=== PATIENT | male | born 1960 | race Caucasian/White ===

== ENCOUNTER → 2021-07-18 | Day surgery (SDC) | payer OTHER ==
[~2021-07-18] VITALS: Ht 188 cm; Wt 132.4 kg
[~2021-07-18] MED LIST: AMARYL2 MG PO; JARDIANCE25 MG PO; LIPITOR20 MG PO; METFORMIN HCL500 MG PO; PRINIVIL10 MG PO; TRULICITY3 MG/0.5 M IJ
[2021-07-18 08:01] LABS: HCT 48.6 % (42.0-52.0); HGB 16.6 g/dl (13.2-18.0); MCH 29.4 pg (25.0-31.0); MCHC 34.2 g/dL (32.0-36.0); MCV 86.2 fL (78.0-100.0); MPV 9.4 fL (6.0-9.5); RBC 5.64 M/uL (4.70-6.00); RDW 12.1 % (11.5-14.0); WBC 8.7 K/uL (4.0-10.5)
[2021-07-18 08:17] LABS: ALBUMIN 3.8 g/dL (3.4-5.0); BILIRUBIN - TOTAL 0.6 mg/dL (0.2-1.0); BUN/CREAT RATIO (CALC) 19.8 RATIO; CREATININE 0.91 mg/dL (0.67-1.17); POTASSIUM 4.3 mmol/L (3.5-5.1); TOTAL PROTEIN 7.8 g/dL (6.4-8.2)
== END | disposition home or self-care (01) ==
LOC: FAS 06:55
PROVIDERS: Surgery
DX: Z12.11 Encounter for screening for malignant neoplasm of colon (principal); Z86.010 Personal history of colon polyps; Z79.84 Long term (current) use of oral hypoglycemic drugs
CPT/HCPCS: 36415; 80053; J2250; J2704; J7120